=== PATIENT | male | born 1970 | race Caucasian/White ===

== ENCOUNTER 2023-02-27 17:35 | Emergency (ER) | payer SELFPAY | END 2023-02-27 19:10 | disposition home or self-care (01) | LOC: ERS 17:35 | DX: J03.90 Acute tonsillitis, unspecified (principal); F17.210 Nicotine dependence, cigarettes, uncomplicated | CPT/HCPCS: 87081; 87430; 99284 ==

== ENCOUNTER 2025-07-27 08:27 | Emergency (ER) | payer SELFPAY | END 2025-07-27 08:57 | disposition left against medical advice (07) | LOC: ERS 08:27 | DX: Z53.21 Procedure and treatment not carried out due to patient leaving prior to being seen by health care provider (principal) ==